=== PATIENT | male | born 1965 | race Caucasian/White ===

== ENCOUNTER 2019-01-12 09:53 | Inpatient (IN) | payer BC ==
[~2019-01-12] VITALS: Ht 170.2 cm; Wt 110.2 kg
--- NOTE | 2019-01-12 10:50 | NUR ---
PT PRESENTS TO ED WITH C/O SUBSTERNAL CHESTR PAIN DESCRIBED A DULL SHARP ACHE. HAS BEEN CONSISTENT SINCE HE WOKE UP. STATES PAIN RADIATES INTO RIGHT SHOULDER AND ARM. PT HAD SLIGHTLY ABRNOMAL EKG AT WHICH IS WHY HE CAME HERE. MILD AMOUNT OF DISTRESS. BREATHING REGULAR AND UNLABORED. PT ON COOK VEGETABLE, CONT. PULSE OX, AND BP. AWAITING RESULTS. ERMD AWARE PT IS ALLERGIC TO ASA.
[2019-01-12] MEDS ORDERED: ASPIRIN 81 MG TABLET CHEW PO ONE (11:00)
[2019-01-12] MEDS ORDERED: SODIUM CHLORIDE FLUSH 10ML SYR IVF ONE (11:00)
[2019-01-12 11:23] LABS: BASOPHILS # (AUTO) 0.05 x10^3/uL (0-0.1); BASOPHILS % (AUTO) 1 % (0-1); EOSINOPHILS # (AUTO) 0.24 x10^3/uL (0-0.4); EOSINOPHILS % (AUTO) 4 % (1-7); LYMPHOCYTES # (AUTO) 2.91 x10^3/uL (1-3.4); LYMPHOCYTES % (AUTO) 43 % (22-44); MD NO; MEAN CORPUSCULAR HEMOGLOBIN 32.2 pg (27.5-34.5); MEAN CORPUSCULAR HGB CONC 33.9 g/dL (33.2-36.2); MEAN PLATELET VOLUME 8.2 fL (7.4-10.4); MONOCYTES # (AUTO) 0.57 x10^3/uL (0.2-0.8); MONOCYTES % (AUTO) 8 % (2-9); NEUTROPHILS # (AUTO) 3.01 x10^3/uL (1.8-6.8); NEUTROPHILS % (AUTO) 44 % (42-75); PLATELET COUNT 256 x10^3/uL (130-400); RED BLOOD COUNT 4.48 x10^6/uL (4.38-5.82); RED CELL DISTRIBUTION WIDTH 13.7 % (9.4-14.8)
[2019-01-12 11:32] LABS: ALANINE AMINOTRANSFERASE 76 U/L (12-78); ALBUMIN 3.4 g/dL (3.4-5.0); ANION GAP 5 mmol/L (5-15); CALCIUM 8.3 mg/dL (8.5-10.1); CHLORIDE 112 mmol/L (98-107)
--- NOTE | 2019-01-12 11:35 | NUR ---
PT BACK FROM [place] [facility]IA [facility].
[2019-01-12 11:37] LABS: ALKALINE PHOSPHATASE 87 U/L (45-117); BILIRUBIN,TOTAL 0.3 mg/dL (0.2-1.0); CREATININE 0.74 mg/dL (0.7-1.3); TOTAL PROTEIN 7.7 g/dL (6.4-8.2); TROPONIN I < 0.015 ng/mL (0.000-0.045)
--- NOTE | 2019-01-12 12:00 | NUR ---
URINE COLLECTED AND SENT TO LAB. REPORT TO AJIT RESENDIZ.
[2019-01-12 12:27] LABS: MICROSCOPIC NOT IND
[2019-01-12 12:35] LABS: CULTURE INDICATED? NO
--- NOTE | 2019-01-12 12:43 | NUR ---
AWARE OF POC, STILL REPORTS INTERMITTENT CP BUT TOLERABLE
[2019-01-12] MEDS ORDERED: POLYETHYLENE GLYCOL 17 GM PACKET PO PRN (13:30)
[2019-01-12] MEDS ORDERED: BISACODYL 10 MG SUPP PR PRN (13:30)
[2019-01-12] MEDS ORDERED: ACETAMINOPHEN 325 MG TABLET PO PRN (13:30)
[2019-01-12] MEDS ORDERED: morphine SULFATE 10 MG/ML, 1ML IVPush PRN (13:30)
[2019-01-12] MEDS ORDERED: GABAPENTIN 300 MG CAPSULE PO PRN (13:30)
[2019-01-12] MEDS ORDERED: hydrALAzine 20 MG/ML, 1ML IVPush PRN (13:30)
[2019-01-12] MEDS ORDERED: HEPARIN 5,000 UNITS/ML, 1ML SQ SCH (13:30)
[2019-01-12] MEDS ORDERED: LABETALOL 5MG/ML, 20ML IVPush PRN (13:30)
[2019-01-12] MEDS ORDERED: ENALAPRILAT 1.25 MG/ML, 2ML IVPush PRN (13:30)
[2019-01-12] MEDS ORDERED: DOCUSATE 100 MG CAPSULE PO PRN (13:30)
[2019-01-12 13:45] LABS: FREE T4 (FREE THYROXINE) 1.06 ng/dL (0.76-1.46); TROPONIN I < 0.015 ng/mL (0.000-0.045)
[2019-01-12 13:51] LABS: THYROID STIMULATING HORMONE 0.501 mIU/L (0.358-3.740)
[2019-01-12 14:16] LABS: HEMOGLOBIN A1C 5.8 % (4.2-6.3)
--- NOTE | 2019-01-12 14:52 | NUR ---
spoke with dr quach pt now npo and no narcotics till after hida scan
[2019-01-12] MEDS ORDERED: HEPARIN 5,000 UNITS/ML, 1ML ONE (15:11)
[2019-01-12] MEDS ORDERED: NICOTINE 7 MG/24 HR PATCH.TD24 ONE (15:12)
--- NOTE | 2019-01-12 16:15 | NUR ---
cardiac rhythm strip printed and placed on chart
--- NOTE | 2019-01-12 17:37 | NUR ---
PT SLEEPING ON AND OFF, ON PHOTOCOPYING MACHINE OPERATOR, MEDICATED ORDERED AWARE OF NPO STATUS
[2019-01-12] MEDS: NICOTINE 7 MG/24 HR PATCH.TD24 TD SCH (17:39)
--- NOTE | 2019-01-12 17:39 | NUR ---
BEDSIDE REPORT FROM ASTRID FONG, ASSUMED CARE OF PT, PT RESTING IN [facility], [facility], ON MONITOR, VSS
--- NOTE | 2019-01-12 18:57 | NUR ---
Note isaac in EDM - 01/12/19 at 1901 by LINDSAYIMAVIKASH ASSUMED CARE OF PATIENT. PATIENT BIB [facility] FOR SOB. PT IS ALWAYS ON 4L NC. OXYGEN ON. PULSE OX ON AT 96% PT VS STABLE. CALL LIGHT IN PLACE. WILL CONTINUE TO MONITOR.
--- NOTE | 2019-01-12 19:07 | NUR ---
ASSUMED CARE OF PATIENT. REPORT GIVEN FROM AJIT HUERTA
[2019-01-12] MEDS ORDERED: SINCALIDE (KINEVAC) 5 MCG ONE (19:57)
[2019-01-12 19:59] LABS: TROPONIN I < 0.015 ng/mL (0.000-0.045)
--- NOTE | 2019-01-12 20:10 | NUR ---
PT IS STILL AT HIS HIDA SCAN
--- NOTE | 2019-01-12 20:46 | NUR ---
REPORT CALLED INTO AJIT MCGRATH ON TELE
[2019-01-12 21:24] VITALS: BP 141/88
[2019-01-12 23:01] LABS: AMPHETAMINE SCREEN, URINE Negative (Negative); BARBITURATE SCREEN, URINE Negative (Negative); BENZODIAZEPINE SCREEN, URINE Negative (Negative); CANNABINOID SCREEN, URINE Positive (Negative); COCAINE SCREEN, URINE Negative (Negative); METHADONE SCREEN, URINE Negative (Negative); OPIATE SCREEN, URINE Negative (Negative)
[2019-01-13] MEDS: HEPARIN 5,000 UNITS/ML, 1ML SQ SCH ×2 (01:43→09:30)
[2019-01-13 02:04] VITALS: BP 126/80
[2019-01-13 06:07] LABS: BASOPHILS # (AUTO) 0.03 x10^3/uL (0-0.1); BASOPHILS % (AUTO) 1 % (0-1); EOSINOPHILS # (AUTO) 0.32 x10^3/uL (0-0.4); EOSINOPHILS % (AUTO) 5 % (1-7); LYMPHOCYTES # (AUTO) 2.34 x10^3/uL (1-3.4); LYMPHOCYTES % (AUTO) 37 % (22-44); MD NO; MEAN CORPUSCULAR HEMOGLOBIN 33.2 pg (27.5-34.5); MEAN CORPUSCULAR HGB CONC 35.1 g/dL (33.2-36.2); MEAN CORPUSCULAR VOLUME 94.5 fL (81-97); MEAN PLATELET VOLUME 8.2 fL (7.4-10.4); MONOCYTES # (AUTO) 0.52 x10^3/uL (0.2-0.8); MONOCYTES % (AUTO) 8 % (2-9); NEUTROPHILS # (AUTO) 3.13 x10^3/uL (1.8-6.8); NEUTROPHILS % (AUTO) 49 % (42-75); PLATELET COUNT 236 x10^3/uL (130-400); RED BLOOD COUNT 4.37 x10^6/uL (4.38-5.82); RED CELL DISTRIBUTION WIDTH 13.6 % (9.4-14.8)
[2019-01-13 06:18] LABS: ALBUMIN 3.1 g/dL (3.4-5.0); ANION GAP 3 mmol/L (5-15); CALCIUM 8.3 mg/dL (8.5-10.1); CHLORIDE 112 mmol/L (98-107)
[2019-01-13 06:22] LABS: ALANINE AMINOTRANSFERASE 68 U/L (12-78); ALKALINE PHOSPHATASE 62 U/L (45-117); BILIRUBIN,TOTAL 0.5 mg/dL (0.2-1.0); CHOL/HDL RATIO 3.4; CHOLESTEROL, TOTAL 151 mg/dL (140-239); CREATININE 0.64 mg/dL (0.7-1.3); HDL CHOL % 29 % (26-37); HDL CHOLESTEROL (DIRECT) 44 mg/dL (40-60); LDL CHOLESTEROL,CALCULATED 85 mg/dL (54-169); LDL/HDL RATIO 1.9 (0.5-3.0); TRIGLYCERIDES 110 mg/dL (50-200); VLDL CHOLESTEROL 22 mg/dL (0-25)
[2019-01-13 08:05] VITALS: BP 120/78
[2019-01-13] MEDS ORDERED: SODIUM CHLORIDE 0.9% 1,000 ML IV SCH (08:27)
[2019-01-13] MEDS ORDERED: VANCOMYCIN PMX 1GM/200ML 200 ML IVPB ONE (08:30)
[2019-01-13] MEDS ORDERED: GADOBUTROL 10 MMOL/10 ML PFS ONE (11:42)
[2019-01-13 13:42] VITALS: BP 135/94
[2019-01-13] MEDS ORDERED: FENTANYL PF 100 MCG/2ML ONE (14:10)
[2019-01-13] MEDS ORDERED: MIDAZOLAM 1 MG/ML, 5ML ONE (14:10)
[2019-01-13] MEDS ORDERED: CEFAZOLIN 1,000 MG ONE (14:10)
[2019-01-13] MEDS ORDERED: LIDOCAINE 1%, 20ML ONE (14:10)
[2019-01-13] MEDS ORDERED: HOLD MEDICATION MC PRN (15:00)
[2019-01-13 19:37] VITALS: BP 127/75
[2019-01-13] MEDS: SODIUM CHLORIDE FLUSH 10ML SYR IVF SCH (20:18)
[2019-01-13] MEDS: NICOTINE 7 MG/24 HR PATCH.TD24 TD SCH (20:18)
[2019-01-13] MEDS: CEFAZOLIN PMX 1GM/50ML 50 ML IVPB SCH (22:31)
[2019-01-14 00:58] VITALS: BP 125/75
[2019-01-14] MEDS: CEFAZOLIN PMX 1GM/50ML 50 ML IVPB SCH ×2 (06:09→13:57)
[2019-01-14 07:59] VITALS: BP 140/90
[2019-01-14] MEDS: SODIUM CHLORIDE FLUSH 10ML SYR IVF SCH (09:00)
[2019-01-14] MEDS ORDERED: REGADENOSON 0.4 MG/5 ML SYRINGE ONE (09:47)
[2019-01-14 14:25] VITALS: BP 157/98
[2019-01-14] MEDS ORDERED: GABA300C10 PO (14:39)
[2019-01-14] MEDS ORDERED: ACET325T14 PO (14:39)
== END 2019-01-14 15:53 | disposition home or self-care (01) | DRG 244 ==
LOC: ED 12:01 → EDIP 13:04 → 5SO 21:10 → OBSVTOIN 01-14 08:31
PROVIDERS: ADMIT Hospitalist; ATTEND Hospitalist
PROC: 0JH606Z Insertion of Pacemaker, Dual Chamber into Chest Subcutaneous Tissue and Fascia, Open Approach (ICD-10-PCS; principal; 2019-01-13)
PROC: 02HK3JZ Insertion of Pacemaker Lead into Right Ventricle, Percutaneous Approach (ICD-10-PCS; 2019-01-13)
PROC: 02H63JZ Insertion of Pacemaker Lead into Right Atrium, Percutaneous Approach (ICD-10-PCS; 2019-01-13)
DX: I49.5 Sick sinus syndrome (principal); I44.39 Other atrioventricular block; E66.9 Obesity, unspecified; G47.33 Obstructive sleep apnea (adult) (pediatric); I34.0 Nonrheumatic mitral (valve) insufficiency; F12.90 Cannabis use, unspecified, uncomplicated; F17.210 Nicotine dependence, cigarettes, uncomplicated; G89.29 Other chronic pain; K21.9 Gastro-esophageal reflux disease without esophagitis; Z87.442 Personal history of urinary calculi; Z83.3 Family history of diabetes mellitus; Z88.6 Allergy status to analgesic agent; Z68.38 Body mass index [BMI] 38.0-38.9, adult; Z88.1 Allergy status to other antibiotic agents; Z90.49 Acquired absence of other specified parts of digestive tract
CPT/HCPCS: 33208; 36415; 70450; 70553; 71045; 76700; 78227; 78452; 80053; 80061; 80307; 81003; 83036; 83690; 84439; 84443; 84484; 85025; 85379; 93005; 93017; 93306; 99156; 99157; 99285; A9585; C1779; C1785; C1892; G0378; J0690; J1644; J2250; J2785; J3010; J3490; A9502; A9537; C9898; J2805; J7030

== ENCOUNTER → 2019-03-01 | Outpatient (CLI) | payer BC ==
[~2019-03-01] MED LIST: ACET325T14 PO; GABA300C10 PO
== END | disposition home or self-care (01) ==
LOC: CFH 14:08
PROVIDERS: ATTEND Internal Medicine Cardiovascular Disease
DX: Z48.812 Encounter for surgical aftercare following surgery on the circulatory system (principal); Z95.0 Presence of cardiac pacemaker
CPT/HCPCS: 71046

== ENCOUNTER 2019-04-04 08:12 | Emergency (ER) | payer BC ==
[~2019-04-04] VITALS: Ht 170.2 cm; Wt 111.5 kg
--- NOTE | 2019-04-04 08:31 | NUR ---
SEE CARDIOLOLGY AFTER PACEMAKER WAS NOT WORKING WELL - 'WAITING FOR CARD. TO DECIDE WHETHER TO REPLACE PACEMAKER', CP STARTED LAST NIGHT AT REST. NO DIZZINIESS, NO SYNCOPE. + SOB WITH WALKING AND PAIN. NO ASPIRIN DUE TO ALLERGY
--- NOTE | 2019-04-04 08:46 | NUR ---
Received bedside report from AJIT Mccracken. All questions answered. NADN. PT resting on gurney connected to NIBP, contious pulse ox, and chaser helper. Call light within reach. Bedrail up for safety measures.
[2019-04-04] MEDS ORDERED: KETOROLAC 30 MG/1 ML ONE (08:49)
--- NOTE | 2019-04-04 08:55 | NUR ---
ASSUMED CARE OF PT. AT THIS MOMENT PT DENIES CHEST PAIN BUT STATES THAT IT COMES IN WAVES. PT AWAITING CTA. DAUGHTER AT BEDSIDE. WILL CONTINUE TO MONITOR
[2019-04-04] MEDS ORDERED: SODIUM CHLORIDE FLUSH 10ML SYR IVF ONE (09:00)
[2019-04-04] MEDS ORDERED: KETOROLAC 30 MG/1 ML IV ONE (09:00)
--- NOTE | 2019-04-04 09:00 | NUR ---
Provided bedside report to AJIT Steel. All questions answered. NADN. No needs expressed at this time.
[2019-04-04 09:04] LABS: BASOPHILS # (AUTO) 0.05 x10^3/uL (0-0.1); BASOPHILS % (AUTO) 1 % (0-1); EOSINOPHILS # (AUTO) 0.21 x10^3/uL (0-0.4); EOSINOPHILS % (AUTO) 2 % (1-7); LYMPHOCYTES # (AUTO) 3.76 x10^3/uL (1-3.4); LYMPHOCYTES % (AUTO) 36 % (22-44); MD NO; MEAN CORPUSCULAR HGB CONC 33.4 g/dL (33.2-36.2); MEAN CORPUSCULAR VOLUME 95.8 fL (81-97); MEAN PLATELET VOLUME 8.3 fL (7.4-10.4); MONOCYTES # (AUTO) 1.26 x10^3/uL (0.2-0.8); MONOCYTES % (AUTO) 12 % (2-9); NEUTROPHILS # (AUTO) 5.11 x10^3/uL (1.8-6.8); NEUTROPHILS % (AUTO) 49 % (42-75); PLATELET COUNT 209 x10^3/uL (130-400); RED BLOOD COUNT 4.46 x10^6/uL (4.38-5.82)
[2019-04-04 09:11] LABS: ALBUMIN 3.3 g/dL (3.4-5.0); ANION GAP 7 mmol/L (5-15); CALCIUM 8.6 mg/dL (8.5-10.1); CHLORIDE 112 mmol/L (98-107)
[2019-04-04 09:16] LABS: ALANINE AMINOTRANSFERASE 69 U/L (12-78); ALKALINE PHOSPHATASE 83 U/L (45-117); BILIRUBIN,TOTAL 0.4 mg/dL (0.2-1.0); CREATININE 0.78 mg/dL (0.7-1.3); TOTAL PROTEIN 7.2 g/dL (6.4-8.2); TROPONIN I < 0.015 ng/mL (0.000-0.045)
--- NOTE | 2019-04-04 09:51 | NUR ---
PT TO CT VIA [facility]
[2019-04-04] MEDS ORDERED: OMNIPAQUE 350 MG/ML, 100ML BOTTLE ONE (10:04)
--- NOTE | 2019-04-04 10:06 | NUR ---
RETURNED FROM CT. STATES IT HURTS WHEN HE BREATHES. CONTINUE TO GONRE9S AND AWAITING DISPO.
[2019-04-04 11:27] VITALS: BP 142/92
== END 2019-04-04 11:30 | disposition home or self-care (01) ==
LOC: ED 09:01
DX: R07.89 Other chest pain (principal); F17.200 Nicotine dependence, unspecified, uncomplicated; Z79.82 Long term (current) use of aspirin
CPT/HCPCS: 36415; 71045; 71275; 80053; 83880; 84484; 85025; 85379; 93005; 96374; 99284; J1885; Q9967